=== PATIENT | female | born 1945 | race Hispanic/Latino ===

== ENCOUNTER → 2017-08-11 | Day surgery (SDC) | payer OTHER, MEDICARE ==
[~2017-08-11] VITALS: Ht 147.3 cm; Wt 74.4 kg
[~2017-08-11] MED LIST: DAILY MULTIPLE1 EACH PO
--- NOTE | 2017-08-11 15:45 | Operative Report ---
Operative/Inv Procedure Report Surgery Date: 08/11/17 Name of Procedure: Robotic-assisted laparoscopic incisional hernia repair, incarcerated 2 Pre-Operative Diagnosis: Incarcerated incisional hernia Post-Operative Diagnosis: Same Estimated Blood Loss: scant Surgeon/Chief Of Pediatric Urology: Gordon GRACE,Jc Salinas/Leah ANDERSON Anesthesia: general endotracheal tube Implants: 12 cm Parietex 9 cm round Parietex Operative/Procedure Note Note: After consent patient was brought to the operative room and laid supine. Gen. anesthesia was obtained and her left arm tucked. She her abdomen was then prepped and draped. The skin and left upper quadrant was after local anesthesia and a transverse incision made sharply. Using a 12 mm optical trocar we gained access to the peritoneum visually. Pneumoperitoneum was achieved. No overt bowel injury was identified. 2, 8 mm ports were placed and left lower quadrant after local anesthesia was instilled and under direct vision the camera. The robot was undocked and instruments inserted her direct vision. The abdomen was explored. There was incarcerated omentum in the epigastric port site in the midline. There was a small umbilical defect just inferiorly. There was a third defect along her scar near the pubis. We began by taking down the preperitoneal tissues medially and carried our dissection up to the defects. There was incarcerated fat in the epigastric site which was delivered and reflected inferiorly. We then dissected inferiorly to the umbilical defect in a similar fashion small amount of fatty tissue, preperitoneal was delivered. We carried dissection down to the pubis and there was a 2 cm fascial defect that was reducible. The tissues were then circumvention dissected. The intervening segment was transected so that there was no potential for internal hernia. Once the dissection was completed the defects were closed primarily using a running 0 , V lock suture, absorbable. There was a significant amount of normal fascia between the 2 defects. I elected to repair them separately with 2 different pieces of mesh. The epigastric port site and umbilical defect were covered with one piece of 12 cm round mesh. The suprapubic region was covered with a separate piece of 9 cm round mesh. Both defects had sutures applied to them, 2- 0 V lock absorbable. The sutures were then placed in the fascia in the midline on both ends tied down. I then ran the fascia circumferentially. 2 further sutures required placement to complete the attachment. Once the dissection was completed the sutures were removed passed off the field. Once were happy the placement mesh we allowed the gas to esape. The ports were delivered and fascia and the left upper quadrant closed with 0 Vicryl suture. Skin incisions closed with 4-0 Vicryl. Steri-Strips and sterile dressing applied. Sponge and needle counts are correct Findings: 3 separate fascial defects repaired with 2 pieces of mesh CC: Tolu GRACE,Nacho
== END ==
LOC: STS 04:17
DX: K43.0 Incisional hernia with obstruction, without gangrene (principal); K44.9 Diaphragmatic hernia without obstruction or gangrene; D50.9 Iron deficiency anemia, unspecified
CPT/HCPCS: C1781; C9399; J0131; J0690; J2250